=== PATIENT | male | born 1960 | race Caucasian/White ===

== ENCOUNTER 2022-04-11 15:42 | Emergency (ER) | payer OTHER ==
[2022-04-11] MEDS ORDERED: Lactated Ringers 1,000 ML IV ONE (16:01)
[2022-04-11] MEDS ORDERED: Lidocaine 1% 20 ML MDV INJECT ONE (17:18)
[2022-04-11] MEDS ORDERED: Diphtheria,Pertussis(Acell),Tetanus Vaccine 0.5 ML Syringe IM ONE (17:18)
[2022-04-11] MEDS ORDERED: Lidocaine 1% with EPINEPHrine 1:100,000 10 ML MDV INJECT ONE (17:20)
[2022-04-11] MEDS ORDERED: Lidocaine 1% 10 ML MDV INJECT ONE (17:24)
[2022-04-11] MEDS ORDERED: Lidocaine 1% 10 ML MDV ONE (17:25)
== END 2022-04-11 19:10 | disposition home or self-care (01) ==
LOC: JD.ED 15:42
DX: S01.01XA Laceration without foreign body of scalp, initial encounter (principal); S70.02XA Contusion of left hip, initial encounter; Z23 Encounter for immunization; W11.XXXA Fall on and from ladder, initial encounter
CPT/HCPCS: 12004; 36415; 70450; 73502; 80053; 85025; 85610; 86850; 86900; 86901; 90471; 90715; 96360; 99284; J7120